=== PATIENT | female | born 1975 | race Caucasian/White ===

== ENCOUNTER 2017-11-04 09:54 | Emergency (ER) | payer BC ==
[2017-11-04] MEDS: IBUPROFEN 600 MG TAB PO (12:49)
== END 2017-11-04 17:42 | disposition home or self-care (01) ==
LOC: FTE 09:54
DX: S99.911A Unspecified injury of right ankle, initial encounter (principal); W18.39XA Other fall on same level, initial encounter; Y92.9 Unspecified place or not applicable
CPT/HCPCS: 73610; 73610-RT; 73630; 73700; 99284-25

== ENCOUNTER 2018-01-28 20:44 | Emergency (ER) | payer BC ==
[2018-01-28 22:26] LABS: ADD MAN DIFF? NO
[2018-01-28 22:28] LABS: BASOPHIL # 0.1 10^3/ul (0.0-0.1); BASOPHILS % 0.7 % (0.0-2.0); EOSINOPHILS # 0.2 10^3/ul (0.0-0.5); EOSINOPHILS % 1.4 % (0.0-7.0); HEMATOCRIT 35.2 % (37.0-47.0); HEMOGLOBIN 12.2 g/dl (12.0-16.0); LYMPHOCYTES # 3.5 10^3/ul (0.8-2.9); LYMPHOCYTES % 31.6 % (15.0-51.0); MEAN CORPUSCULAR HEMOGLOBIN 30.5 pg (29.0-33.0); MEAN CORPUSCULAR HGB CONC 34.7 g/dl (32.0-37.0); MEAN PLATELET VOLUME 11.2 fl (7.4-10.4); MONOCYTE # 0.8 10^3/ul (0.3-0.9); MONOCYTES % 7.2 % (0.0-11.0); NEUTROPHIL # 6.5 10^3/ul (1.6-7.5); NEUTROPHILS % 58.8 % (39.0-77.0); PLATELET COUNT 278 10^3/UL (140-415); RED CELL DISTRIBUTION WIDTH 13.6 % (11.5-14.5)
[2018-01-28 23:22] LABS: ADD UMIC YES; UR ASCORBIC ACID NEGATIVE (NEGATIVE); UR BACTERIA FEW /HPF (NONE SEEN); UR BILIRUBIN (Dip) NEGATIVE (NEGATIVE); UR BLOOD (Dip) 3+ mg/dL (NEGATIVE); UR CLARITY SLIGHTLY CLOUDY (CLEAR); UR COLOR YELLOW (YELLOW); UR GLUCOSE (Dip) NEGATIVE (NEGATIVE); UR KETONES (Dip) NEGATIVE (NEGATIVE); UR LEUKOCYTE ESTERASE (Dip) TRACE Leu/ul (NEGATIVE); UR NITRITE (Dip) NEGATIVE (NEGATIVE); UR RBC > 182 /HPF (0-5); UR SQUAMOUS EPITHELIAL CELL FEW /HPF (FEW); UR TOTAL PROTEIN (Dip) 2+ mg/dl (NEGATIVE); UR UROBILINOGEN (Dip) NEGATIVE (NEGATIVE); UR WBC 25 /HPF (0-5)
[2018-01-29 01:17] LABS: ABO/RH TYPE 1 1
== END 2018-01-29 01:50 | disposition home or self-care (01) ==
LOC: FTE 01-29 01:50
DX: O20.9 Hemorrhage in early pregnancy, unspecified (principal); R10.2 Pelvic and perineal pain; Z3A.01 Less than 8 weeks gestation of pregnancy
CPT/HCPCS: 36415; 76801; 76817; 81001; 84702; 85025; 86900; 86901; 99284-25

== ENCOUNTER 2018-02-01 18:55 | Inpatient (IN) | payer BC ==
[2018-02-01 20:23] LABS: URINE BLOOD (Dip) POC 3+ (NEGATIVE); URINE GLUCOSE (Dip) POC Negative (NEGATIVE); URINE KETONES (Dip) POC Trace (NEGATIVE); URINE LEUKOCYTE EST (Dip) POC 1+ (NEGATIVE); URINE NITRITE (Dip) POC Negative (NEGATIVE); URINE TOTAL PROTEIN POC 3+ (NEGATIVE)
[2018-02-01 20:49] LABS: ADD MAN DIFF? NO
[2018-02-01 20:52] LABS: BASOPHIL # 0.1 10^3/ul (0.0-0.1); BASOPHILS % 0.7 % (0.0-2.0); EOSINOPHILS # 0.2 10^3/ul (0.0-0.5); EOSINOPHILS % 2.4 % (0.0-7.0); HEMOGLOBIN 11.8 g/dl (12.0-16.0); LYMPHOCYTES # 3.2 10^3/ul (0.8-2.9); LYMPHOCYTES % 33.8 % (15.0-51.0); MEAN CORPUSCULAR HEMOGLOBIN 30.3 pg (29.0-33.0); MEAN CORPUSCULAR HGB CONC 33.7 g/dl (32.0-37.0); MEAN PLATELET VOLUME 11.1 fl (7.4-10.4); MONOCYTE # 0.8 10^3/ul (0.3-0.9); NEUTROPHIL # 5.2 10^3/ul (1.6-7.5); NEUTROPHILS % 54.8 % (39.0-77.0); PLATELET COUNT 271 10^3/UL (140-415); RED BLOOD COUNT 3.89 10^6/ul (4.20-5.40); RED CELL DISTRIBUTION WIDTH 13.8 % (11.5-14.5)
[2018-02-01 20:52] LABS: WHITE BLOOD COUNT 9.4 10^3/ul (4.8-10.8)
[2018-02-01 21:02] LABS: ADD UMIC YES; UR AMORPHOUS CRYSTAL FEW /HPF (NONE SEEN); UR ASCORBIC ACID NEGATIVE (NEGATIVE); UR BACTERIA FEW /HPF (NONE SEEN); UR BILIRUBIN (Dip) NEGATIVE (NEGATIVE); UR BLOOD (Dip) 2+ mg/dL (NEGATIVE); UR CLARITY SLIGHTLY CLOUDY (CLEAR); UR COLOR RED (YELLOW); UR GLUCOSE (Dip) 1+ mg/dL (NEGATIVE); UR KETONES (Dip) NEGATIVE (NEGATIVE); UR LEUKOCYTE ESTERASE (Dip) 2+ Leu/ul (NEGATIVE); UR NITRITE (Dip) NEGATIVE (NEGATIVE); UR RBC 176 /HPF (0-5); UR SPECIFIC GRAVITY (Dip) 1.008 (1.003-1.030); UR SQUAMOUS EPITHELIAL CELL MODERATE /HPF (FEW); UR TOTAL PROTEIN (Dip) 2+ mg/dl (NEGATIVE); UR UROBILINOGEN (Dip) NEGATIVE (NEGATIVE); UR WBC 94 /HPF (0-5)
[2018-02-02] MEDS: SOD CHLORIDE 0.9% 1,000 ML IV (00:27)
[2018-02-02 01:33] LABS: INR 1.06; PROTIME 13.9 Sec (11.9-14.9); PT RATIO 1.1
[2018-02-02 01:34] LABS: PARTIAL THROMBOPLASTIN TIME 26.4 Sec (25.0-35.0)
[2018-02-02 05:46] LABS: PROTIME 14.8 Sec (11.9-14.9)
[2018-02-02 05:47] LABS: PARTIAL THROMBOPLASTIN TIME 25.7 Sec (25.0-35.0)
[2018-02-02] MEDS ORDERED: FENTAnyl 50 MCG/ML VIAL (08:13)
[2018-02-02] MEDS ORDERED: MIDAZOLAM 1 MG/ML 2 ML INJ (08:13)
[2018-02-02] MEDS ORDERED: LIDOCAINE 2% (SDV) 5 ML INJ (08:55)
[2018-02-02] MEDS ORDERED: CEFAZOLIN 1 GM INJ (08:55)
[2018-02-02] MEDS ORDERED: PROPOFOL 40 ML (08:55)
[2018-02-02] MEDS ORDERED: ONDANSETRON 4 MG INJ (08:56)
[2018-02-02] MEDS ORDERED: ONDANSETRON 4 MG INJ IV (09:30)
[2018-02-02] MEDS ORDERED: MEPERIDINE 25 MG INJ IV (09:30)
[2018-02-02] MEDS ORDERED: METOCLOPRAMIDE 10 MG INJ IV (09:30)
[2018-02-02] MEDS ORDERED: HYDROmorphONE (0.2 MG/ML) 10ML SYG IV (09:30)
[2018-02-02] MEDS ORDERED: FENTAnyl 50 MCG/ML VIAL IV (09:30)
[2018-02-02] MEDS: HYDROmorphONE (0.2 MG/ML) 10ML SYG IV (09:34)
[2018-02-02] MEDS: DIPHENHYDRAMINE 50 MG INJ IV (09:35)
[2018-02-04] MEDS ORDERED: INFLUENZA VIRUS VACCINE 0.5 ML (DISPENSING) IM* (09:00)
== END 2018-02-02 19:00 | disposition home or self-care (01) | DRG 770 ==
LOC: MS1 02-02 00:05 → FTE 18:55
PROC: 10D18ZZ Extraction of Products of Conception, Retained, Via Natural or Artificial Opening Endoscopic (ICD-10-PCS; principal; 2018-02-02 06:30)
DX: O03.4 Incomplete spontaneous abortion without complication (principal); Z68.41 Body mass index [BMI] 40.0-44.9, adult; E66.01 Morbid (severe) obesity due to excess calories
CPT/HCPCS: 76801; 76817; 81001; 81003; 84702; 85025; 85335; 85610; 85730; 86900; 86901; 88305

== ENCOUNTER 2018-08-23 17:35 | Emergency (ER) | payer BC ==
[2018-08-23] MEDS: ACETAMINOPHEN 325 MG TAB PO (19:09)
[2018-08-23] MEDS: SOD CHLORIDE 0.9% 1,000 ML IV (19:10)
[2018-08-23 19:24] LABS: ADD MAN DIFF? NO
[2018-08-23 19:29] LABS: WHITE BLOOD COUNT 10.3 10^3/ul (4.8-10.8)
[2018-08-23 19:29] LABS: BASOPHIL # 0.1 10^3/ul (0.0-0.1); BASOPHILS % 0.7 % (0.0-2.0); EOSINOPHILS # 0.1 10^3/ul (0.0-0.5); EOSINOPHILS % 1.3 % (0.0-7.0); HEMATOCRIT 38.1 % (37.0-47.0); HEMOGLOBIN 12.8 g/dl (12.0-16.0); LYMPHOCYTES # 3.3 10^3/ul (0.8-2.9); LYMPHOCYTES % 31.8 % (15.0-51.0); MEAN CORPUSCULAR HEMOGLOBIN 30.1 pg (29.0-33.0); MEAN CORPUSCULAR HGB CONC 33.6 g/dl (32.0-37.0); MEAN CORPUSCULAR VOLUME 89.6 fl (82.0-101.0); MONOCYTE # 0.9 10^3/ul (0.3-0.9); MONOCYTES % 8.2 % (0.0-11.0); NEUTROPHILS % 57.6 % (39.0-77.0); PLATELET COUNT 277 10^3/UL (140-415); RED BLOOD COUNT 4.25 10^6/ul (4.20-5.40); RED CELL DISTRIBUTION WIDTH 13.7 % (11.5-14.5)
[2018-08-23 19:36] LABS: ADD UMIC YES; UR ASCORBIC ACID NEGATIVE (NEGATIVE); UR BACTERIA MANY /HPF (NONE SEEN); UR BILIRUBIN (Dip) NEGATIVE (NEGATIVE); UR BLOOD (Dip) 2+ mg/dL (NEGATIVE); UR CLARITY CLOUDY (CLEAR); UR COLOR AMBER (YELLOW); UR GLUCOSE (Dip) NEGATIVE (NEGATIVE); UR KETONES (Dip) NEGATIVE (NEGATIVE); UR LEUKOCYTE ESTERASE (Dip) 1+ Leu/ul (NEGATIVE); UR MUCUS FEW /HPF (NONE SEEN); UR NITRITE (Dip) POSITIVE (NEGATIVE); UR RBC 6 /HPF (0-5); UR SQUAMOUS EPITHELIAL CELL FEW /HPF (FEW); UR TOTAL PROTEIN (Dip) NEGATIVE (NEGATIVE); UR UROBILINOGEN (Dip) NEGATIVE (NEGATIVE); UR WBC 5 /HPF (0-5)
[2018-08-23 19:46] LABS: ALANINE AMINOTRANSFERASE 31 IU/L (13-69); ALBUMIN 3.6 g/dl (3.3-4.9); ALBUMIN/GLOBULIN RATIO 0.97; ALKALINE PHOSPHATASE 61 IU/L (42-121); ANION GAP 14 (5-13); ASPARTATE AMINO TRANSFERASE 29 IU/L (15-46); BLOOD UREA NITROGEN 10 mg/dl (7-20); CALCIUM 9.5 mg/dl (8.4-10.2); CARBON DIOXIDE 21 mmol/L (21-31); CHLORIDE 104 mmol/L (97-110); CREATININE 0.58 mg/dl (0.44-1.00); Estimated GFR > 60 mL/min (>60); GLUCOSE 111 mg/dl (70-220); POTASSIUM 3.9 mmol/L (3.5-5.1); SODIUM 139 mmol/L (135-144); TOTAL PROTEIN 7.3 g/dl (6.1-8.1)
== END 2018-08-23 20:58 | disposition home or self-care (01) ==
LOC: FTE 17:35
DX: O23.41 Unspecified infection of urinary tract in pregnancy, first trimester (principal); R10.2 Pelvic and perineal pain; Z3A.09 9 weeks gestation of pregnancy
CPT/HCPCS: 36415; 76801; 80053; 81001; 84702; 85025; 86900; 86901; 99285-25

== ENCOUNTER 2019-02-02 22:21 | Outpatient (CLI) | payer BC ==
[2019-02-02] MEDS: AL HYDROX/MG HYDROX/SIMETH 30 ML CUP PO (23:35)
[2019-02-02 23:43] LABS: ADD MAN DIFF? NO
[2019-02-02 23:45] LABS: WHITE BLOOD COUNT 8.2 10^3/ul (4.8-10.8)
[2019-02-02 23:45] LABS: BASOPHIL # 0.1 10^3/ul (0.0-0.1); BASOPHILS % 0.6 % (0.0-2.0); EOSINOPHILS # 0.1 10^3/ul (0.0-0.5); EOSINOPHILS % 1.3 % (0.0-7.0); HEMATOCRIT 32.7 % (37.0-47.0); LYMPHOCYTES # 2.1 10^3/ul (0.8-2.9); LYMPHOCYTES % 25.3 % (15.0-51.0); MEAN CORPUSCULAR HEMOGLOBIN 31.2 pg (29.0-33.0); MEAN CORPUSCULAR HGB CONC 33.6 g/dl (32.0-37.0); MEAN CORPUSCULAR VOLUME 92.6 fl (82.0-101.0); MONOCYTE # 0.6 10^3/ul (0.3-0.9); MONOCYTES % 7.6 % (0.0-11.0); NEUTROPHIL # 5.3 10^3/ul (1.6-7.5); NEUTROPHILS % 64.6 % (39.0-77.0); PLATELET COUNT 205 10^3/UL (140-415); RED BLOOD COUNT 3.53 10^6/ul (4.20-5.40); RED CELL DISTRIBUTION WIDTH 14.6 % (11.5-14.5)
[2019-02-02 23:50] LABS: ADD UMIC YES; UR ASCORBIC ACID NEGATIVE (NEGATIVE); UR BACTERIA FEW /HPF (NONE SEEN); UR BILIRUBIN (Dip) NEGATIVE (NEGATIVE); UR BLOOD (Dip) 1+ mg/dL (NEGATIVE); UR CLARITY SLIGHTLY CLOUDY (CLEAR); UR COLOR YELLOW (YELLOW); UR GLUCOSE (Dip) 1+ mg/dL (NEGATIVE); UR KETONES (Dip) NEGATIVE (NEGATIVE); UR LEUKOCYTE ESTERASE (Dip) NEGATIVE Leu/ul (NEGATIVE); UR NITRITE (Dip) NEGATIVE (NEGATIVE); UR RBC 2 /HPF (0-5); UR SQUAMOUS EPITHELIAL CELL FEW /HPF (FEW); UR TOTAL PROTEIN (Dip) NEGATIVE (NEGATIVE); UR UROBILINOGEN (Dip) NEGATIVE (NEGATIVE); UR WBC 0 /HPF (0-5)
[2019-02-02 23:58] LABS: ALANINE AMINOTRANSFERASE 14 IU/L (13-69); ALBUMIN 3.3 g/dl (3.3-4.9); ALBUMIN/GLOBULIN RATIO 1.06; ALKALINE PHOSPHATASE 79 IU/L (42-121); AMYLASE 61 U/L (11-123); ANION GAP 11 (5-13); ASPARTATE AMINO TRANSFERASE 17 IU/L (15-46); BILIRUBIN,INDIRECT 0.2 mg/dl (0-1.1); BILIRUBIN,TOTAL 0.2 mg/dl (0.2-1.3); BLOOD UREA NITROGEN 9 mg/dl (7-20); CARBON DIOXIDE 22 mmol/L (21-31); CHLORIDE 105 mmol/L (97-110); CREATININE 0.41 mg/dl (0.44-1.00); Estimated GFR > 60 mL/min (>60); GLUCOSE 203 mg/dl (70-220); LIPASE 59 U/L (23-300); POTASSIUM 3.6 mmol/L (3.5-5.1); SODIUM 138 mmol/L (135-144); TOTAL PROTEIN 6.4 g/dl (6.1-8.1); URIC ACID 4.2 mg/dl (3.1-7.9)
[2019-02-03 00:02] LABS: PROTIME 13.3 Sec (11.9-14.9)
[2019-02-03 00:03] LABS: PARTIAL THROMBOPLASTIN TIME 26.5 Sec (23.0-35.0)
== END 2019-02-03 00:30 | disposition home or self-care (01) ==
LOC: OBT 22:21 → L-D 22:23
DX: O24.419 Gestational diabetes mellitus in pregnancy, unspecified control (principal); O13.3 Gestational [pregnancy-induced] hypertension without significant proteinuria, third trimester; O09.523 Supervision of elderly multigravida, third trimester; Z3A.33 33 weeks gestation of pregnancy
CPT/HCPCS: 36415; 76705; 76815; 76818; 80053; 81001; 82150; 83690; 84560; 85025; 85610; 85730; 87086